=== PATIENT | female | born 1995 | race Caucasian/White ===

== ENCOUNTER 2018-11-29 09:47 | Day surgery (SDC) | payer BC, OTHER ==
[~2018-11-29] VITALS: Ht 180.3 cm; Wt 82.0 kg
[2018-11-29] VITALS (13 sets, daily range): BP systolic 85–123; BP diastolic 46–67; PULSE 72–90; RESP 7–34; Ht 180.3 cm; Wt 82.0 kg
[2018-11-29] MEDS ORDERED: TRAM50TA PO (10:55)
[2018-11-29] MEDS ORDERED: LORA-186 PO (10:56)
[2018-11-29] MEDS ORDERED: FLUT16SP17 NASAL (10:57)
[2018-11-29] MEDS ORDERED: BUPIVACAINE 0.5% (SDV) 30 ML INJ ONE (12:11)
[2018-11-29] MEDS ORDERED: POLYMYXIN/BACITRACIN 1L IRRIG ONE (12:11)
[2018-11-29] MEDS ORDERED: LACTATED RINGER'S 1,000 ML IV SCH (12:30)
--- NOTE | 2018-11-29 12:31 | PREAC ---
Date/Time of Note Date/Time of Note DATE: 11/29/18 TIME: 12:26 Anesthesia Eval and Record Evaluation Time Pre-Procedure Interview DATE: 11/29/18 TIME: 12: Age 23 Sex female NPO: 8 hrs Preoperative diagnosis s/p Left Hand Laceration Planned procedure Left Hand I & D possible repair of thumb ulnar digital nerve, possible repair of extensor pollicis longus tendon, possible transfer of left index finger extensor indicis propius tendon. Past Medical History Past Medical History: Includes Pulm: Asthma Recreational drugs: Marijuana Surgery & Anesthesia Issues No known issue Meds Anticoagulation: No Beta Rafita within 24 hr: No Reason Beta Rafita not given: Pt. not on B-Rafita Reported Medications Fluticasone Propionate* (Fluticasone Propionate* Nasal) 50 Mcg/[place] - 16 Gm [place].susp, 1 SPRAY NASAL DAILY, #1 BOTTLE TO EACH NOSTRIL 11/29/18 Loratadine* (Claritin*) 10 Mg Tablet, 10 MG PO DAILY, TAB 11/29/18 Tramadol Hcl* (Ultram*) 50 Mg Tablet, 50 MG PO Q4 PRN for PAIN, TAB 11/29/18 Current Medications Lactated Ringer's 1,000 ml @ 0 mls/hr Q0M IV ; Start 11/29/18 at 12:30 Meds reviewed: Yes Allergies Coded Allergies: No Known Allergy (Unverified , 11/29/18) Allergies Reviewed: Yes Labs/Studies Labs Reviewed: Reviewed by anesthesiologist test: Negative Studies: ECG (n/a), CXR (n/a) Pre-procedure Exam Last vitals Vital Signs Date Temp Pulse Resp B/P (MAP) Pulse Ox O2 O2 Flow FiO2 Time Delivery Rate 11/29/18 97.6 82 16 123/56 98 Room Air 12:02 (78) Airway: Adequate mouth opening, Adequate thyromental dist Mallampati: Mallampati II Teeth: Normal Lung: Normal Heart: Normal ASA Physical Status ASA physical status: 2 Emergency: None Planned Anesthetic General/MAC: LMA Nerve block: Brachial plexus (left) Planned Pain Management Single shot nerve block, Parenteral pain med Pre-operative Attestations Prior to commencing anesthesia and surgery, the patient was re-evaluated, there was verification of: *The patient's identity *The results of appropriate recent lab work and preoperative vital signs *The above evaluation not changing prior to induction *Anesthetic plan, risk benefits, alternative and complications discussed with patient/family; questions answered; patient/family understands, accepts and wishes to proceed. ZARI WILLINGHAM MD Nov 29, 2018 12:31
[2018-11-29] MEDS ORDERED: MIDAZOLAM 1 MG/ML 2 ML INJ ONE (12:33)
[2018-11-29] MEDS ORDERED: FENTAnyl 50 MCG/ML VIAL ONE (12:33)
[2018-11-29] MEDS ORDERED: CEFAZOLIN 1 GM INJ ONE (12:33)
[2018-11-29] MEDS ORDERED: PROPOFOL 20 ML ONE (12:33)
[2018-11-29] MEDS ORDERED: ROPIVACAINE 0.5 % 30 ML VIAL ONE (12:34)
--- NOTE | 2018-11-29 12:49 | HPN ---
Date/Time of Note Date/Time of Note DATE: 11/29/18 TIME: 12:49 Interval H&P Admission Note Pt. seen H&P reviewed: No system changes LATA WYNN Nov 29, 2018 12:49
[2018-11-29] MEDS ORDERED: METOCLOPRAMIDE 10 MG INJ ONE (13:15)
[2018-11-29] MEDS ORDERED: KETOROLAC 30 MG INJ ONE (13:15)
[2018-11-29] MEDS ORDERED: DEXAMETHASONE 4 MG/ML 5 ML INJ ONE (13:15)
[2018-11-29] MEDS ORDERED: ONDANSETRON 4 MG INJ ONE (13:15)
--- NOTE | 2018-11-29 13:31 | PAC ---
Date/Time of Note Date/Time of Note DATE: 11/29/18 TIME: 13:31 Post-Anesthesia Notes Post-Anesthesia Note Last documented vital signs Vital Signs Date Temp Pulse Resp B/P (MAP) Pulse Ox O2 O2 Flow FiO2 Time Delivery Rate 11/29/18 98.0 82 16 123/56 98 Room Air 13:32 (78) Activity: WNL Respiratory function: WNL Cardiovascular function: WNL Mental status: Baseline Pain reasonably controlled: Yes Hydration appropriate: Yes Nausea/Vomiting absent: Yes ZARI WILLINGHAM MD Nov 29, 2018 13:31
[2018-11-29] MEDS ORDERED: HYDROmorphONE 1 MG/5 ML IV SYRINGE IV PRN ×4 (14:00)
[2018-11-29] MEDS ORDERED: ONDANSETRON 4 MG INJ IV PRN ×2 (14:00)
[2018-11-29] MEDS ORDERED: OXYCODONE/ACETAMINOPHEN (5/325) TAB PO PRN ×2 (14:00)
[2018-11-29] MEDS ORDERED: METOCLOPRAMIDE 10 MG INJ IV PRN ×2 (14:00)
[2018-11-29] MEDS ORDERED: DIPHENHYDRAMINE 50 MG INJ IV PRN (14:00)
[2018-11-29] MEDS ORDERED: LABETALOL HCL 20MG INJ IV PRN (14:00)
[2018-11-29] MEDS ORDERED: MEPERIDINE 25 MG INJ IV PRN (14:00)
[2018-11-29] MEDS ORDERED: EPHEDrine SULFATE 50 MG/5 ML SYG IV PRN (14:00)
[2018-11-29] MEDS ORDERED: FENTAnyl 50 MCG/ML VIAL IV PRN ×4 (14:00)
[2018-11-29] MEDS ORDERED: KETOROLAC 15 MG INJ IV PRN (14:00)
[2018-11-29] MEDS ORDERED: MEPERIDINE 25 MG INJ ONE (14:01)
--- NOTE | 2018-11-29 14:24 | OPPN ---
Date/Time of Note Date/Time of Note DATE: 11/29/18 TIME: 14:22 Operative Report Preoperative Diagnosis left hand traumatic wound, concern for tendon or nerve injury Postoperative Diagnosis left hand traumatic wound, no nerve injury Less than 10% EPL tendon laceration with adhesions Operation/Procedure Performed washout, exploration left hand traumatic wound left hand EPL tendon tenolysis Surgeon see signature line esl instructional assistant none Anesthesia: general Estimated blood loss: 0 - 10 ml's Transfusion Required none Specimen none Grafts/Implants none Complications none LATA WYNN Nov 29, 2018 14:24
--- NOTE | 2018-11-29 16:52 | OPR ---
DATE OF OPERATION: 11/29/2018 SURGEON: Cedric Prieto MD ANESTHESIA: General. PREOPERATIVE DIAGNOSES: 1. Left hand penetrating laceration and wound at the first webspace. 2. Concern for tendon or nerve injury. POSTOPERATIVE DIAGNOSES: 1. Left hand penetrating laceration and wound at the first webspace. 2. Partial less than 10% laceration of the extensor pollicis longus tendon to the left thumb. PROCEDURE: 1. Washout and exploration left hand penetrating wound, deep. 2. Left thumb extensor pollicis longus tendon tenolysis. OPERATIVE FINDINGS: Penetrating wound left hand with partial injury to the extensor pollicis longus tendon and tendon adhesions. INDICATION FOR PROCEDURE: A 23-year-old female with penetrating wound to the left hand at the first webspace. She complained of numbness as well as weakness with motion. We discussed the options and given the numbness and weakness the patient elected to proceed with surgical exploration and repair a s needed. She consented to proceed, understanding risks and benefits. DESCRIPTION OF PROCEDURE: The patient was seen in the preoperative area and all further questions we re answered. Again, she gave informed consent, understanding risks and benefits. She was take to [facility] operative suite and placed in supine position. She was placed under general anesthesia, and tourni quet placed in left upper extremity. Left upper extremity was prepped with ChloraPrep stick in the u sual sterile fashion. Esmarch bandage was used to exsanguinate the extremity and tourniquet inflated to 250 mmHg. The stitches that were there previously were removed and the traumatic wound was explo red. There were devitalized skin and subcutaneous tissue as well as muscle, which was excised using Adson forceps and tenotomy scissors as well as blunt dissection. The wound was copiously irrigated a nd was further explored. The ulnar digital nerve to the thumb as well as the radial digital nerve to the index finger were both intact. The extensor pollicis longus tendon was visualized and there was a less than 10% injury to the extensor pollicis longus tendon, but there was some scar tissue surrou nding it. A tenolysis was performed of the extensor pollicis longus tendon with tenotomy scissors an d Adson forceps to fade away from surrounding scar tissue. The tendon glided nicely and had good str ength without further injury. The wound was then copiously irrigated and skin closed with 5-0 nylon. Xeroform placed the wound followed by sterile gauze, Webril and a bias dressing. Tourniquet deflat ed after 12 minutes. The patient was awakened from anesthesia. She was taken to postoperative suite in stable condition, tolerated procedure well without complication. SPECIMENS: None. ESTIMATED BLOOD LOSS: 5 mL COUNTS: Sponge, instrument, needle counts correct. TOURNIQUET TIME: 12 minutes. CONDITION ON DISCHARGE: Stable. The patient was given a nonrefillable 5-day prescription for pain medication for surgery today. Dictated By: CEDRIC MARSH/CHANDU Conf#: [id number] DID#: [id number]
== END 2018-11-29 15:10 | disposition home or self-care (01) ==
LOC: SDS 09:47
PROVIDERS: ATTEND Orthopaedic Surgery Hand Surgery
DX: S66.222D Laceration of extensor muscle, fascia and tendon of left thumb at wrist and hand level, subsequent encounter (principal); W26.0XXD Contact with knife, subsequent encounter; J45.909 Unspecified asthma, uncomplicated
CPT/HCPCS: 26445; 84703; J0690; J1100; J1885; J2175; J2250; J2405; J2765; J3010; J2795